=== PATIENT | female | born 1990 | race Caucasian/White ===

== ENCOUNTER 2016-11-30 15:53 | Inpatient (IN) | payer MEDICAID ==
[~2016-11-30] VITALS: Ht 160 cm; Wt 78.5 kg
[~2016-11-30 15:53] MED LIST: ACET325T33 PO; CALC600T5 PO; FOL8 PO; PRENAT PO
[2016-11-30 17:05] LABS: ADD SCAN DIFF NO
[2016-11-30 17:08] LABS: BASOPHILS % 0.2 % (0.0-2.0); EOSINOPHILS # 0.1 10^3/ul (0.0-0.5); EOSINOPHILS % 1.6 % (0.0-7.0); HEMATOCRIT 39.2 % (37.0-47.0); HEMOGLOBIN 13.7 g/dl (12.0-16.0); LYMPHOCYTES # 2.5 10^3/ul (0.8-2.9); LYMPHOCYTES % 29.4 % (15.0-51.0); MEAN CORPUSCULAR HEMOGLOBIN 31.2 pg (29.0-33.0); MEAN CORPUSCULAR HGB CONC 34.9 g/dl (32.0-37.0); MEAN CORPUSCULAR VOLUME 89.3 fl (82.0-101.0); MEAN PLATELET VOLUME 10.1 fl (7.4-10.4); MONOCYTE # 0.6 10^3/ul (0.3-0.9); MONOCYTES % 6.8 % (0.0-11.0); NEUTROPHIL # 5.2 10^3/ul (1.6-7.5); NEUTROPHILS % 61.6 % (39.0-77.0); PLATELET COUNT 281 10^3/UL (140-415); RED BLOOD COUNT 4.39 10^6/ul (4.20-5.40); RED CELL DISTRIBUTION WIDTH 12.2 % (11.5-14.5); WHITE BLOOD COUNT 8.4 10^3/ul (4.8-10.8)
[2016-11-30 17:24] LABS: INR 0.91; PROTIME 12.2 Sec (12.2-14.2)
[2016-11-30 17:25] LABS: PARTIAL THROMBOPLASTIN TIME 29.2 Sec (25.0-35.0)
[2016-11-30 17:36] LABS: ALANINE AMINOTRANSFERASE 62 IU/L (13-69); ALBUMIN/GLOBULIN RATIO 1.56; ALKALINE PHOSPHATASE 75 IU/L (42-121); ANION GAP 12 (8-16); ASPARTATE AMINO TRANSFERASE 35 IU/L (15-46); BILIRUBIN,INDIRECT 0.3 mg/dl (0-1.1); BILIRUBIN,TOTAL 0.3 mg/dl (0.2-1.3); BLOOD UREA NITROGEN 8 mg/dl (7-20); CALCIUM 9.6 mg/dl (8.4-10.2); CARBON DIOXIDE 27 mmol/L (21-31); CHLORIDE 102 mmol/L (97-110); CREATININE 0.64 mg/dl (0.44-1.00); GLUCOSE 91 mg/dl (70-220); POTASSIUM 3.7 mmol/L (3.5-5.1); SODIUM 137 mmol/L (135-144); TOTAL PROTEIN 8.2 g/dl (6.1-8.1)
[2016-11-30 17:42] LABS: C-REACTIVE PROTEIN < 0.5 mg/dl (0.0-0.9)
--- NOTE | 2016-11-30 18:38 | RADRPT ---
PROCEDURE: MR Brain without contrast. CLINICAL INDICATION: Cerebellar sinus. Evaluate cerebellum. TECHNIQUE: Multiplanar multi echo imaging is performed to the brain in the coronal sagittal and ax ial planes. Diffusion weighted axial images, axial ADC maps, coronal T1-weighted, axial T2 fast-spi n echo, axial FLAIR and T1-weighted axial images are obtained to the brain. Additional axial GRE im ages are reviewed. Coronal T2-weighted images are performed. COMPARISON: No. 3. Attempted FINDINGS: The fourth ventricle, third and lateral ventricles are normal in size and configuration. Diffusion weighted imaging is revealed no areas acute ischemic change. ADC maps of the brain are no rmal. The fourth, third and lateral ventricles are normal in size and configuration. The brain par enchyma is normal. The cerebellum is unremarkable. There is no evidence of tonsillar herniation. The globes and extraocular muscles are normal. Axial T2 FLAIR images demonstrate no evidence of acu te intracranial hemorrhage. Fast and echo T2-weighted axial images show no evidence of vasogenic ed francisco. The pituitary gland is normal in size. There is no evidence of tonsillar herniation. The cer vical portion of the spinal cord is unremarkable where visualized. No intracranial mass or vascular malformation is identified.. IMPRESSION: 1. Normal MRI the brain without contrast. 2. The cerebellum is normal. RPTAT:AAJJ Physician Godwin Date Time Electronically viewed and signed by Physician Godwin on 11/30/2016 18:38 LAILA/
[2016-11-30] MEDS ORDERED: SOD CHLORIDE 0.9% 1,000 ML IV SCH (19:30)
[2016-11-30] MEDS ORDERED: ONDANSETRON 4 MG INJ IV PRN (19:30)
--- NOTE | 2016-11-30 19:32 | EN ---
Date/Time of Note Date/Time of Note DATE: 11/30/16 TIME: 19:31 ER Progress Note I was notified about this patient from our fast track area who needed admission for cerebellar ataxia. MRI is normal however this patient is unable to ambulate. Ataxia could be post viral however given the fact the patient is unable to ambulate the patient will be admitted at this time. I have spoken to Dr. Day who agrees to accept the patient at this time for admission and neurology consult on the [facility] floor. CHAD MERIDA DO Nov 30, 2016 19:32
--- NOTE | 2016-11-30 19:46 | ERA ---
ER Documentation Chief Complaint Date/Time DATE: 11/30/16 TIME: 19:41 Chief Complaint headache and dizziness today, had an episode last week HPI This 25-year-old female presents with headache and dizziness starting earlier today. The headache is dull and occipital. She has a sensation of being on balance and spinning type dizziness. It is worse when he she turns her head although bilaterally. She did have a repeat episode of similar symptoms last week that resolved. Patient denies any recent illnesses or fevers, chest pain or shortness of breath, weakness. She did have URI symptoms although was 3-4 weeks ago. Patient denies any history of trauma. ROS All systems reviewed and are negative except as per history of present illness. Medications Home Meds Active Scripts Acetaminophen* (Tylenol*) 325 Mg Tablet, 2 TAB PO Q6 Y for PAIN AND OR ELEVATED TEMP, #30 TAB Prov:MATEO PRABHAKAR PA-C 11/01/15 Reported Medications Calcium Carbonate (CALCIUM) 600 Mg Tablet, 600 MG PO DAILY, TAB 10/31/15 Folic Acid* (Folic Acid*) 0.8 Mg Tablet, 0.8 MG PO DAILY, TAB 10/31/15 Multivit/Min/Fol Ac/Iron/Pren* ( S*) 1 Tab Tab, 1 TAB PO DAILY, TAB 10/31/15 Allergies Allergies: Coded Allergies: No Known Allergy (Unverified , 10/31/15) PMhx/Soc Medical and Surgical Hx: pt denies Medical Hx, pt denies Surgical Hx History of Surgery: No Hx Alcohol Use: No Hx Substance Use: No Hx Tobacco Use: No Smoking Status: Never smoker Physical Exam Vitals Vital Signs Date Time Temp Pulse Resp B/P Pulse Ox O2 Delivery O2 Flow Rate FiO2 11/30/16 15:59 99.4 87 18 148/84 100 Physical Exam Const: [] Alert, in a wheelchair due to dizziness. Head: Atraumatic Eyes: Normal Conjunctiva. Minimal possibly horizontal nystagmus. Eyes are PERRLA and extraocular movements intact ENT: Normal External Ears, Nose and Mouth. Neck: Full range of motion..~ No meningismus. Resp: Clear to auscultation bilaterally Cardio: Regular rate and rhythm, no murmurs Abd: Soft, non tender, non distended. Normal bowel sounds Skin: No petechiae or rashes Back: No midline or flank tenderness Ext: No cyanosis, or edema Neur: Awake and alert. Patient has an ataxic gait. Patient has positive Romberg has difficulty with finger to nose testing. Patient is unable to stand or ambulate without assistance. Psych: Normal Mood and Affect Result Diagram: 11/30/16 1653 11/30/16 1653 Results 24 hrs Laboratory Tests Test 11/30/16 16:53 White Blood Count 8.410^3/ul Red Blood Count 4.3910^6/ul Hemoglobin 13.7g/dl Hematocrit 39.2% Mean Corpuscular Volume 89.3fl Mean Corpuscular Hemoglobin 31.2pg Mean Corpuscular Hemoglobin Concent 34.9g/dl Red Cell Distribution Width 12.2% Platelet Count 68971^3/UL Mean Platelet Volume 10.1fl Neutrophils % 61.6% Lymphocytes % 29.4% Monocytes % 6.8% Eosinophils % 1.6% Basophils % 0.2% Nucleated Red Blood Cells % 0.0/100WBC Neutrophils # 5.210^3/ul Lymphocytes # 2.510^3/ul Monocytes # 0.610^3/ul Eosinophils # 0.110^3/ul Basophils # 0.010^3/ul Nucleated Red Blood Cells # 0.010^3/ul Erythrocyte Sedimentation Rate 5mm/Hr Prothrombin Time 12.2Sec Prothrombin Time Ratio 1.0 INR International Normalized Ratio 0.91 Activated Partial Thromboplast Time 29.2Sec Sodium Level 137mmol/L Potassium Level 3.7mmol/L Chloride Level 102mmol/L Carbon Dioxide Level 27mmol/L Anion Gap 12 Blood Urea Nitrogen 8mg/dl Creatinine 0.64mg/dl Glucose Level 91mg/dl Calcium Level 9.6mg/dl Total Bilirubin 0.3mg/dl Direct Bilirubin 0.00mg/dl Indirect Bilirubin 0.3mg/dl Aspartate Amino Transf (AST/SGOT) 35IU/L Alanine Aminotransferase (ALT/SGPT) 62IU/L Alkaline Phosphatase 75IU/L C-Reactive Protein < 0.5mg/dl Total Protein 8.2g/dl Albumin 5.0g/dl Globulin 3.20g/dl Albumin/Globulin Ratio 1.56 Current Medications Medications (Trade) Dose Ordered Sig/Raghu Route PRN Reason Start Time Stop Time Status Last Admin Dose Admin Sodium Chloride (NS) 1,000 ml @ 80 mls/hr [id number] IV 11/30/16 19:30 12/01/16 07:59 Ondansetron HCl (Zofran Inj) 4 mg BRIDGE ORDER PRN IV NAUSEA AND/OR VOMITING 11/30/16 19:30 12/01/16 19:29 Acetaminophen (Tylenol Tab) 650 mg ER BRIDGE PRN PO MILD PAIN/FEVER 11/30/16 19:30 12/01/16 19:29 Procedures/MDM Patient has signs and symptoms of cerebellar ataxia. IV was obtained. CBC, CMP , ESR and CRP are normal. Per radiology recommendation MRI of the brain and cerebellum is normal. Serial exam shows no improvement in patient's condition has difficulty ambulating or standing without assistance. Patient presents with cerebellar ataxia without signs or symptoms to suggest radiographic evidence of ischemia, infection, hemorrhage . Patient will be admitted for further evaluation and treatment and presumed neurologic evaluation. Patient was otherwise stable throughout the ED course. Patient shows no signs or symptoms to suggest acute coronary syndrome, pulmonary embolus, acute abdomen, sepsis. Urine drug screen pending. Departure Diagnosis: Primary Impression: Cerebellar ataxia Condition: Stable PERLITA GOODRICH MD Nov 30, 2016 19:46
[2016-11-30 21:10] VITALS: PULSE 73; TEMP 98.4
[2016-11-30] MEDS: ACETAMINOPHEN 325 MG TAB PO PRN (21:20)
[2016-11-30 22:44] VITALS: Ht 160 cm; Wt 78.5 kg
[2016-11-30 23:22] VITALS: BP 131/79; RESP 16
--- NOTE | 2016-11-30 23:42 | HP ---
Date/Time of Note Date/Time of Note DATE: 11/30/16 TIME: 23:41 Assessment/Plan VTE Prophylaxis VTE Prophylaxis Intervention: SCD's Assessment/Plan Chief Complaint/Hosp Course This is a 25 year old female being admitted to the med surg floor for: #1 Disequilibrium: Neurologic disorder/BPPV versus possible medical etiology: MRI brain was negative. Will check MRI of the spine secondary to her reported weakness of her legs and back pain. Initial labs within normal values. Will also check tsh, a1c. Consult neurology. Will give trial of meclizine. #2 Ambulatory dysfunction: this could be secondary to #1 however with the patient reporting that she an epidural injection in the past and has been feeling weak since then with palpable tenderness of the c-spine and lumbar spine , I will further evaluate with a MRI of the spine. #3dvt, gi prophylaxis: scds, protonix. Further treatment strategy as per the clinical course Problems: HPI/ROS Admit Date/Time Admit Date/Time Nov 30, 2016 at 19:31 Hx of Present Illness CC; headache, dizziness This 25-year-old female presents with headache and dizziness starting earlier today. The headache is dull and occipital. She has a sensation of being on balance and spinning type dizziness. It is worse when he she turns her head although bilaterally. She did have a repeat episode of similar symptoms last week that resolved. Patient denies any recent illnesses or fevers, chest pain or shortness of breath, weakness. She did have URI symptoms although was 3-4 weeks ago. Patient denies any history of trauma. She does also state that she has been experiencing leg weakness since getting an epidural approx. 9 months ago when delivering her child. allergies: nkda Meds: none ROS Const: As per HPI Eyes : No pain discharge or redness or change in visual acuity ENT: No pain, sore throat, congestion, congestion, dysphagia or discharge Respiratory: No shortness of breath, cough, sputum, wheezing, or pleuritic pain Cardiovascular: No chest pain, palpitation, PND, or edema GI : no change in appetite, abdominal pain, nausea, vomiting, diarrhea, constipation, or change in the color his stool Genitourinary: No dysuria, hematuria, flank pain , discharge or CVA tenderness Musculoskeletal: As per HPI Skin: No rash, bruising or hives Neuro: As per HPI Endocrine: No polyuria, polydipsia, temperature intolerance Psych: No hallucination, depression, anxiety or suicidal ideation PMH/Family/Social Past Medical History empyema as a child Past Surgical History x 1, chest tube as a child for empyema Family History Significant Family History: no pertinent family hx Social History Alcohol Use: none Smoking Status: Never smoker Drug Use: none Exam/Review of Systems Vital Signs Vitals Vital Signs Date Time Temp Pulse Resp B/P Pulse Ox O2 Delivery O2 Flow Rate FiO2 11/30/16 23:22 98.5 71 16 131/79 98 11/30/16 21:10 Room Air Exam Exam General: Patient is well-developed well-nourished The patient is alert oriented -3 lying comfortably in bed. HEENT: Atraumatic, normocephalic. The pupils are equal, round and reactive. Extraocular motor are intact Neck: Supple with full range of motion. No rigidity or meningismus Chest: Nontender Lungs: Clear to auscultation bilaterally no crackles rales or wheezing Heart: Normal S1-S2, Regular rhythm and rate. No murmur, S3, or S4 Abdomen: Soft , nontender, nondistended , bowel sounds are present. No guarding no rebound tenderness , No masses or organomegaly. No costovertebral temporal angle mass Extremities: Normal to inspection, no edema no cyanosis Neurologic: Normal mental status, normal speech normal, cranial nerves II through XII intact, patient deferred ambulatory exam at the current time however based on ED documentation patient was having ataxic gait and having difficulty ambulating. Musculoskeletal: Tenderness to palpation along the C-spine, tenderness to palpation along the lumbar spine. Additional Comments PROCEDURE: MR Brain without contrast. CLINICAL INDICATION: Cerebellar sinus. Evaluate cerebellum. TECHNIQUE: Multiplanar multi echo imaging is performed to the brain in the coronal sagittal and axial planes. Diffusion weighted axial images, axial ADC maps, coronal T1-weighted, axial T2 fast-spin echo, axial FLAIR and T1-weighted axial images are obtained to the brain. Additional axial GRE images are reviewed. Coronal T2-weighted images are performed. COMPARISON: No. 3. Attempted FINDINGS: The fourth ventricle, third and lateral ventricles are normal in size and configuration. Diffusion weighted imaging is revealed no areas acute ischemic change. ADC maps of the brain are normal. The fourth, third and lateral ventricles are normal in size and configuration. The brain parenchyma is normal. The cerebellum is unremarkable. There is no evidence of tonsillar herniation. The globes and extraocular muscles are normal. Axial T2 FLAIR images demonstrate no evidence of acute intracranial hemorrhage. Fast and echo T2- weighted axial images show no evidence of vasogenic edema. The pituitary gland is normal in size. There is no evidence of tonsillar herniation. The cervical portion of the spinal cord is unremarkable where visualized. No intracranial mass or vascular malformation is identified.. IMPRESSION: 1. Normal MRI the brain without contrast. 2. The cerebellum is normal. RPTAT:AAJJ Physician Godwin Date Time Electronically viewed and signed by Dylan Ovalle Physician on 11/30/2016 18:38 Labs Result Diagram: 11/30/16 1653 11/30/16 1653 Medications Medications Current Medications Sodium Chloride (NS) 1,000 ml @ 80 mls/hr [id number] IV ; Start 11/30/16 at 19:30 ; Stop 12/01/16 at 07:59 LAVONNE SALCEDO Nov 30, 2016 23:41
[2016-12-01] MEDS ORDERED: BISACODYL (EC) 5 MG TAB PO PRN
[2016-12-01] MEDS ORDERED: NACL 0.9% 3 ML SYG IV SCH
[2016-12-01] MEDS ORDERED: ONDANSETRON 4 MG INJ IV PRN
[2016-12-01] MEDS ORDERED: DOCUSATE SODIUM 100 MG CAP PO PRN
[2016-12-01 03:02] LABS: BARBITURATES Negative (NEGATIVE); BENZODIAZEPINES Negative (NEGATIVE); CANNABINOIDS Negative (NEGATIVE); COCAINE Negative (NEGATIVE); OPIATES Negative (NEGATIVE)
[2016-12-01] MEDS ORDERED: PANTOPRAZOLE 40 MG INJ IV SCH (06:00)
[2016-12-01 06:13] LABS: ADD SCAN DIFF NO
[2016-12-01 06:19] LABS: BASOPHILS % 0.3 % (0.0-2.0); EOSINOPHILS # 0.2 10^3/ul (0.0-0.5); EOSINOPHILS % 2.8 % (0.0-7.0); HEMATOCRIT 41.4 % (37.0-47.0); HEMOGLOBIN 14.2 g/dl (12.0-16.0); LYMPHOCYTES # 2.1 10^3/ul (0.8-2.9); LYMPHOCYTES % 28.9 % (15.0-51.0); MEAN CORPUSCULAR HEMOGLOBIN 30.9 pg (29.0-33.0); MEAN CORPUSCULAR HGB CONC 34.3 g/dl (32.0-37.0); MEAN PLATELET VOLUME 10.2 fl (7.4-10.4); MONOCYTE # 0.5 10^3/ul (0.3-0.9); NEUTROPHIL # 4.4 10^3/ul (1.6-7.5); NEUTROPHILS % 60.7 % (39.0-77.0); PLATELET COUNT 279 10^3/UL (140-415); RED CELL DISTRIBUTION WIDTH 12.2 % (11.5-14.5); WHITE BLOOD COUNT 7.2 10^3/ul (4.8-10.8)
[2016-12-01 06:43] LABS: ALBUMIN 4.6 g/dl (3.3-4.9); ALBUMIN/GLOBULIN RATIO 1.76; BILIRUBIN,INDIRECT 0.4 mg/dl (0-1.1); BILIRUBIN,TOTAL 0.4 mg/dl (0.2-1.3); CHOL/HDL RATIO 5.1 RATIO; CREATININE 0.63 mg/dl (0.44-1.00); MAGNESIUM 1.8 mg/dl (1.7-2.5); POTASSIUM 3.7 mmol/L (3.5-5.1); TOTAL PROTEIN 7.2 g/dl (6.1-8.1)
[2016-12-01 07:35] VITALS: BP 117/70; RESP 20
[2016-12-01 07:46] LABS: THYROID STIMULATING HORMONE 3.92 MIU/L (0.465-4.680)
[2016-12-01] MEDS: ACETAMINOPHEN 325 MG TAB PO PRN ×2 (09:00→18:12)
--- NOTE | 2016-12-01 09:18 | PN ---
Date/Time of Note Date/Time of Note DATE: 12/01/16 TIME: 09:16 Assessment/Plan VTE Prophylaxis VTE Prophylaxis Intervention: SCD's Lines/Catheters IV C[facility]ter Type (from [facility] Saline Lock Urinary Cath still in place: No Assessment/Plan Assessment/Plan 25 yo F who came in with dizziness and ataxia with a hx of intermittent back pain and LE pain and weakness which she attributes to epidoural during delivery 9 months ago managed as follows 1. Dizziness and headaches : MRI without contrast WNL, Will order with contrast as well / Neurology consult / Meclizine 2. Chronic low back pain with extremity weakness : * Upon further questioning, patient's weakness might be associated more with pain and is located mainly in bilateral knees, ?Autoimmune 3. Dyslipidemia PLAN: MRI scheduled for , await neurology review and MRI findings. Continue supportive care Subjective 24 Hr Interval Summary Free Text/Dictation * still having dizziness, even when she lies down. Exam/Review of Systems Vital Signs Vitals Vital Signs Date Time Temp Pulse Resp B/P Pulse Ox O2 Delivery O2 Flow Rate FiO2 12/01/16 07:35 98.0 76 20 117/70 98 12/01/16 00:51 Nasal Cannula Intake and Output 11/30/16 11/30/16 12/01/16 15:00 23:00 07:00 Intake Total 580 ml Output Total 200 ml Balance 380 ml Exam Constitutional: alert, oriented, anxious Head: atraumatic, normocephalic Neck: non-tender, supple Respiratory: clear to auscultation Cardiovascular: regular rate and rhythm Gastrointestinal: S/ NT / ND / +BS Extremities: no edema, good radial pulses Neuro: A&O x4, no focal deficits Results Result Diagram: 12/01/16 0528 12/01/16 0528 Results 24 hrs Laboratory Tests Test 11/30/16 16:53 12/01/16 00:30 12/01/16 05:28 White Blood Count 8.4 # 7.2 Red Blood Count 4.39 4.60 Hemoglobin 13.7 14.2 Hematocrit 39.2 41.4 Mean Corpuscular Volume 89.3 90.0 Mean Corpuscular Hemoglobin 31.2 30.9 Mean Corpuscular Hemoglobin Concent 34.9 34.3 Red Cell Distribution Width 12.2 12.2 Platelet Count 281 279 Mean Platelet Volume 10.1 10.2 Neutrophils % 61.6 60.7 Lymphocytes % 29.4 28.9 Monocytes % 6.8 7.0 Eosinophils % 1.6 2.8 Basophils % 0.2 0.3 Nucleated Red Blood Cells % 0.0 0.0 Neutrophils # 5.2 4.4 Lymphocytes # 2.5 2.1 Monocytes # 0.6 0.5 Eosinophils # 0.1 0.2 Basophils # 0.0 0.0 Nucleated Red Blood Cells # 0.0 0.0 Erythrocyte Sedimentation Rate 5 Prothrombin Time 12.2 Prothrombin Time Ratio 1.0 INR International Normalized Ratio 0.91 Activated Partial Thromboplast Time 29.2 Sodium Level 137 138 Potassium Level 3.7 3.7 Chloride Level 102 103 Carbon Dioxide Level 27 27 Anion Gap 12 12 Blood Urea Nitrogen 8 10 Creatinine 0.64 0.63 Glucose Level 91 95 Calcium Level 9.6 9.0 Total Bilirubin 0.3 0.4 Direct Bilirubin 0.00 0.00 Indirect Bilirubin 0.3 0.4 Aspartate Amino Transf (AST/SGOT) 35 33 Alanine Aminotransferase (ALT/SGPT) 62 60 Alkaline Phosphatase 75 67 C-Reactive Protein < 0.5 Total Protein 8.2 H 7.2 # Albumin 5.0 H 4.6 Globulin 3.20 2.60 Albumin/Globulin Ratio 1.56 1.76 Urine Opiates Screen Negative Urine Barbiturates Negative Urine Amphetamines Screen Negative Urine Benzodiazepines Screen Negative Urine Cocaine Screen Negative Urine Cannabinoids Negative Hemoglobin A1c 5.5 Magnesium Level 1.8 Triglycerides Level 207 H Cholesterol Level 144 LDL Cholesterol, Calculated 75 HDL Cholesterol 28 L Cholesterol/HDL Ratio 5.1 Thyroid Stimulating Hormone (TSH) 3.920 Medications Medications Current Medications Ondansetron HCl (Zofran Inj) 4 mg Q6H PRN IV NAUSEA AND/OR VOMITING; Start 05/08 at 00:00 Acetaminophen (Tylenol Tab) 650 mg Q6H PRN PO PAIN LEVEL 1-3 OR FEVER; Start at 00:00 Docusate Sodium (Colace) 100 mg Q12H PRN PO CONSTIPATION; Start 12/01/16 at 00: 00 Bisacodyl (Dulcolax) 5 mg DAILY PRN PO CONSTIPATION; Start 12/01/16 at 00:00 Pantoprazole (Protonix Iv) 40 mg DAILY@06 IV Last administered on 12/01/16t 05: 33; Admin Dose 40 MG; Start 12/01/16 at 06:00 BRIAN KUMAR Dec 01, 2016 09:18
--- NOTE | 2016-12-01 14:27 | CONS ---
Date/Time of Note Date/Time of Note DATE: 12/01/16 TIME: 14:21 Assessment/Plan Assessment/Plan Chief Complaint/Hosp Course 25 yo female with no significant PMHx p/w intermittent dizziness and vertigo, neck and lower back pain. Neurologic exam is non-focal. MRI Brain is normal. Recommendations: MRI Brain post contrast imaging, MRI Cervical Spine +/- contrast to evaluate for MS and MRI Lumbar Spine ordered for back pain if imaging all normal patient advised she may follow up with neurology as outpatient IV hydration, meclizine prn vertigo Problems: Consultation Date/Type/Reason Admit Date/Time Nov 30, 2016 at 19:31 Date of Consultation: Dec 01, 2016 Type of Consultation: Neurology Reason for Consultation ataxia eval. Referring Provider: BRIAN KUMAR of Present Illness 25 year old female with history of chronic back pain over 9 months p/w sensation of dizziness and imbalance upon ambulation for the past week. She denies any visual symptoms, she describes some weakness in her left arm tingling sensation yesterday that is now resolved and tenderness of her cervical spine. She has never received further imaging for work up, complains of lumbar pain after epidural injection 9 months prior. MRI Brain w/o contrast done is normal. She denies any recent illness. Social History Alcohol Use: none Smoking Status: Never smoker Drug Use: none Exam/Review of Systems Vital Signs Vitals Vital Signs Date Time Temp Pulse Resp B/P Pulse Ox O2 Delivery O2 Flow Rate FiO2 12/01/16 07:35 98.0 76 20 117/70 98 12/01/16 00:51 Nasal Cannula Intake and Output 11/30/16 11/30/16 12/01/16 15:00 23:00 07:00 Intake Total 580 ml Output Total 200 ml Balance 380 ml Exam Constitutional: alert, oriented, well developed Neurological: [employer]ING [employer] II-XII intact, DTR's symmetric, nl mental status, nl speech, nl strength Results Result Diagram: 12/01/1628 12/01/16527 Results 24 hrs Laboratory Tests Test 11/30/16 16:53 12/01/16 00:30 12/01/16 05:28 White Blood Count 8.4 # 7.2 Red Blood Count 4.39 4.60 Hemoglobin 13.7 14.2 Hematocrit 39.2 41.4 Mean Corpuscular Volume 89.3 90.0 Mean Corpuscular Hemoglobin 31.2 30.9 Mean Corpuscular Hemoglobin Concent 34.9 34.3 Red Cell Distribution Width 12.2 12.2 Platelet Count 281 279 Mean Platelet Volume 10.1 10.2 Neutrophils % 61.6 60.7 Lymphocytes % 29.4 28.9 Monocytes % 6.8 7.0 Eosinophils % 1.6 2.8 Basophils % 0.2 0.3 Nucleated Red Blood Cells % 0.0 0.0 Neutrophils # 5.2 4.4 Lymphocytes # 2.5 2.1 Monocytes # 0.6 0.5 Eosinophils # 0.1 0.2 Basophils # 0.0 0.0 Nucleated Red Blood Cells # 0.0 0.0 Erythrocyte Sedimentation Rate 5 Prothrombin Time 12.2 Prothrombin Time Ratio 1.0 INR International Normalized Ratio 0.91 Activated Partial Thromboplast Time 29.2 Sodium Level 137 138 Potassium Level 3.7 3.7 Chloride Level 102 103 Carbon Dioxide Level 27 27 Anion Gap 12 12 Blood Urea Nitrogen 8 10 Creatinine 0.64 0.63 Glucose Level 91 95 Calcium Level 9.6 9.0 Total Bilirubin 0.3 0.4 Direct Bilirubin 0.00 0.00 Indirect Bilirubin 0.3 0.4 Aspartate Amino Transf (AST/SGOT) 35 33 Alanine Aminotransferase (ALT/SGPT) 62 60 Alkaline Phosphatase 75 67 C-Reactive Protein < 0.5 Total Protein 8.2 H 7.2 # Albumin 5.0 H 4.6 Globulin 3.20 2.60 Albumin/Globulin Ratio 1.56 1.76 Urine Opiates Screen Negative Urine Barbiturates Negative Urine Amphetamines Screen Negative Urine Benzodiazepines Screen Negative Urine Cocaine Screen Negative Urine Cannabinoids Negative Hemoglobin A1c 5.5 Magnesium Level 1.8 Triglycerides Level 207 H Cholesterol Level 144 LDL Cholesterol, Calculated 75 HDL Cholesterol 28 L Cholesterol/HDL Ratio 5.1 Thyroid Stimulating Hormone (TSH) 3.920 Medications Medications Current Medications Ondansetron HCl (Zofran Inj) 4 mg Q6H PRN IV NAUSEA AND/OR VOMITING; Start 05/08 at 00:00 Acetaminophen (Tylenol Tab) 650 mg Q6H PRN PO PAIN LEVEL 1-3 OR FEVER; Start at 00:00 Bisacodyl (Dulcolax) 5 mg DAILY PRN PO CONSTIPATION; Start 12/01/16 at 00:00 Docusate Sodium (Colace) 100 mg Q12H PO ; Start 12/01/16 at 12:00 Atorvastatin Calcium (Lipitor) 10 mg HS PO ; Start 12/01/16 at 21:00 Pantoprazole (Protonix Tab) 40 mg DAILY@06 PO ; Start 12/02/16 at 06:00 Fish Oil (Fish Oil) 1,000 mg BID PO ; Start 12/01/16 at 14:00 PUMA HUGHES MD Dec 01, 2016 14:26
--- NOTE | 2016-12-01 15:05 | RADRPT ---
PROCEDURE: MRI lumbar spine without contrast CLINICAL INDICATION: Back pain TECHNIQUE: An high-resolution MRI of the lumbar spine was performed utilizing the following sequen dilip: Sagittal and axial T1 weighted, sagittal and axial T2 weighted, and sagittal fat suppressed T2. COMPARISON: None FINDINGS: No acute vertebral compression fracture. No evidence of a diffuse marrow replacing process. The conus medullaris terminates at L1. T12 - L1: The disk is preserved in height. There is no significant disk protrusion, spinal canal or foraminal stenosis. L1 - L2: The disk is preserved in height. There is no significant disk protrusion, spinal canal or foraminal stenosis. L2 - L3: The disk is preserved in height. There is no significant disk protrusion, spinal canal or foraminal stenosis. L3 - L4: The disk is preserved in height. There is no significant disk protrusion, spinal canal or foraminal stenosis. L4 - L5: The disk is preserved in height. There is no significant disk protrusion, spinal canal o r foraminal stenosis. L5 - S1: Disk dessication with left central to left foraminal 2 mm disk protrusion and disk annula r fissure. There is mild narrowing of the left lateral recess without displacement of the traversin g left S1 nerve. No spinal canal stenosis. Mild left foraminal narrowing. Paraspinal soft tissues are unremarkable. IMPRESSION: L5 - S1: Mild discogenic disease with a left central to left foraminal 2 mm disk protrusion and di sk annular fissure. Mild left foraminal narrowing. Otherwise, unremarkable noncontrast lumbar spin e MRI. RPTAT: AA .Tin Rojas MD, Date Time Electronically viewed and signed by .Tin Rojas MD, MD on 12/01/2016 15:05 .T/
--- NOTE | 2016-12-01 15:43 | RADRPT ---
PROCEDURE: MRI Brain without and with contrast. CLINICAL INDICATION: Ataxia, headaches and dizziness TECHNIQUE: Multiplanar MRI of the brain without and with contrast was performed on a 3.0 T scanner with the following sequences obtained: T1-weighted, T2-weighted FLAIR, postcontrast T1-weighted. 1 0 cc Magnevist intravenous contrast was administered. COMPARISON: MRI brain 11/30/2016 FINDINGS: No intracranial mass lesion is identified. There is a small enhancing developmental venous anomaly in the parasagittal posterior left frontal region. No abnormal parenchymal, leptomeningeal or dural enhancement is identified. IMPRESSION: 1. No intracranial mass or abnormal enhancement identified. 2. Small left frontal developmental venous anomaly. RPTAT: VV .Dez Marte MD, MD Date Time Electronically viewed and signed by .Dez Marte MD, on 12/01/2016 15:43 .O/
--- NOTE | 2016-12-01 15:48 | RADRPT ---
PROCEDURE: MRI cervical spine without and with contrast CLINICAL INDICATION: Ataxia. Neck pain. TECHNIQUE: Multiplanar MRI of the cervical spine without and with contrast was performed on a 3.0 T scanner including the following sequences: T1-weighted, T2-weighted, postcontrast T1-weighted. 10 cc Magnevist intravenous contrast was administered. COMPARISON: None available. FINDINGS: There is slight reversal of the lordosis of the cervical spine. Alignment is otherwise intact. The vertebral bodies are maintained in height. Marrow signal intensity is unremarkable. Intervertebra l discs are maintained in height. The cervical cord is within normal limits for signal intensity an d caliber at all levels. No abnormal medullary or leptomeningeal enhancement is identified. . C2-3: No disk bulge or herniation is identified. There is no central canal stenosis or foraminal na rrowing. C3-4: No disk bulge or herniation is identified. There is no central canal stenosis or foraminal na rrowing. C4-5: No disk bulge or herniation is identified. There is no central canal stenosis or foraminal na rrowing. C5-6: No disk bulge or herniation is identified. There is no central canal stenosis or foraminal na rrowing. C6-7: No disk bulge or herniation is identified. There is no central canal stenosis or foraminal na rrowing. C7-T1: No disk bulge or herniation is identified. There is no central canal stenosis or foraminal n arrowing. IMPRESSION: 1. Slight reversal of the cervical lordosis. 2. No central canal stenosis or foraminal narrowing. 3. Cervical cord within normal limits. RPTAT: VV .Dez Marte MD, MD Date Time Electronically viewed and signed by .Dez Marte MD, MD on 12/01/2016 15:48 .O/
[2016-12-01] MEDS: DOCUSATE SODIUM 100 MG CAP PO SCH (18:09)
[2016-12-01] MEDS: FISH OIL 1,000 MG CAP PO SCH ×2 (18:09→21:18)
[2016-12-01 20:28] VITALS: BP 120/70; RESP 16
[2016-12-01] MEDS ORDERED: ATORVASTATIN 10 MG TAB PO SCH (21:00)
[2016-12-02] MEDS: DOCUSATE SODIUM 100 MG CAP PO SCH ×2 (00:46→12:42)
[2016-12-02 03:40] VITALS: BP 112/71; RESP 18
[2016-12-02] MEDS ORDERED: PANTOPRAZOLE (EC) 40 MG TAB PO SCH (06:00)
[2016-12-02] MEDS: ACETAMINOPHEN 325 MG TAB PO PRN (06:01)
[2016-12-02 06:27] LABS: T3 UPTAKE 30.5 % (23.5-40.5)
[2016-12-02 06:40] LABS: THYROID STIMULATING HORMONE 2.28 MIU/L (0.465-4.680)
[2016-12-02 08:01] VITALS: BP 113/68; RESP 18
[2016-12-02 08:06] VITALS: BP 135/63; RESP 18
[2016-12-02] MEDS: FISH OIL 1,000 MG CAP PO SCH (08:21)
[2016-12-02] MEDS ORDERED: MECL-77 PO (11:25)
[2016-12-02] MEDS ORDERED: ATOR10TA65 PO (11:25)
[2016-12-02] MEDS ORDERED: OMEG1CAP55 PO (11:25)
[2016-12-02] MEDS ORDERED: MECLIZINE 25 MG TAB PO SCH (12:30)
[2016-12-02 14:16] VITALS: BP 126/72; RESP 18
[2016-12-02] MEDS ORDERED: AMOX1TAB10 PO (15:56)
--- NOTE | 2016-12-02 15:56 | PDOCDIS ---
Discharge Instructions DIAGNOSIS Discharge Diagnosis Dizziness / headaches / tinnitus CONDITION Patient Condition: Stable HOME CARE INSTRUCTIONS: Diet Instructions: Low Fat /CholesterolSpecial Diet: regular ACTIVITY: Activity Restrictions: Slowly Increase Activity Rest between Activity SCHOOL/WORK RELEASE May return to School/Work on: Dec 06, 2016 May return to School/Work with: No Restrictions School/Work Release Comment: Please excuse patient from November 30 till December 06. Thanks BRIAN KUMAR Dec 02, 2016 15:56
--- NOTE | 2016-12-02 15:57 | DS ---
Date/Time of Note Date/Time of Note DATE: 12/02/16 TIME: 15:57 Discharge Summary Admission/Discharge Info Admit Date/Time Nov 30, 2016 at 19:31 Discharge Date/Time 12/02/16 . Discharge Diagnosis Dizziness / headaches / tinnitus Patient Condition: Stable Consults Neurology: Jonathan . Procedures See hospital course . Hx of Present Illness CC; headache, dizziness This 25-year-old female presents with headache and dizziness starting earlier today. The headache is dull and occipital. She has a sensation of being on balance and spinning type dizziness. It is worse when he she turns her head although bilaterally. She did have a repeat episode of similar symptoms last week that resolved. Patient denies any recent illnesses or fevers, chest pain or shortness of breath, weakness. She did have URI symptoms although was 3-4 weeks ago. Patient denies any history of trauma. She does also state that she has been experiencing leg weakness since getting an epidural approx. 9 months ago when delivering her child. allergies: nkda Meds: none Hospital Course 25-year-old female admitted November 30 for dizziness, disequilibrium, and headaches. She was admitted for evaluation and symptom control. She had brain MRI with and without contrast, cervical spine MRI, lumbar spine MRI, and she was also seen by neurology. There were no critical findings or findings I explained her symptoms on above imaging, and then neurology recommended outpatient continued follow-up if symptoms persist. She was started on meclizine which seemed to improve her symptoms. She was seen by physical therapy as well. Her workup did show some dyslipidemia, she was started on statins for those and she had complained of some ringing in the ear as well as ear pain so she was being treated for a chronic ear infection with antibiotics. She is recommended to follow-up with her primary care doctor for an ENT consult if symptoms persist after instituted therapy. She verbalized understanding. She was discharged in stable condition. . Home Meds Active Scripts Amoxicillin/Potassium Clav (Amox-Clav 875-125 mg Tablet) 875-125 mg Tab, 1 TAB PO BID, #20 TAB Prov:BRIAN KUMAR 12/02/16 Meclizine Hcl* (Meclizine Hcl*) 25 Mg Tablet, 25 MG PO TID for 30 Days, TAB Prov:BRIAN KUMAR 7/13/17 [place]-3/Dha/Epa/Fish Oil (FISH OIL EC 1,000 MG SOFTGEL) 1 Each Capsule.dr, 1000 MG PO BID for 30 Days, 2 Refills Prov:BRIAN KUMAR 12/02/16 Atorvastatin (Atorvastatin) 10 Mg Tablet, 10 MG PO HS for 30 Days, TAB 2 Refills Prov:BRIAN KUMAR 12/02/16 Acetaminophen* (Tylenol*) 325 Mg Tablet, 2 TAB PO Q6 Y for PAIN AND OR ELEVATED TEMP, #30 TAB Prov:MATEO PRABHAKAR PA-C 11/01/15 Reported Medications Folic Acid* (Folic Acid*) 0.8 Mg Tablet, 0.8 MG PO DAILY, TAB 10/31/15 Multivit/Min/Fol Ac/Iron/Pren* ( S*) 1 Tab Tab, 1 TAB PO DAILY, TAB 10/31/15 Discontinued Reported Medications Calcium Carbonate (CALCIUM) 600 Mg Tablet, 600 MG PO DAILY, TAB 10/31/15 Follow-up Plan See hospital course . Primary Care Provider Not On Staff Doctor Time spent on discharge: > 30 minutes Pending Labs Laboratory Tests Test 12/02/16 05:30 Creatine Kinase 81IU/L (23-200) Thyroid Stimulating Hormone (TSH) 2.280MIU/L (0.465-4.680) Free Thyroxine Index 2.59ug/ml (0.65-3.89) Thyroxine (T4) 8.5ug/dl (5.5-11.0) Triiodothyronine (T3) Uptake 30.5% (23.5-40.5) BRIAN KUMAR Dec 02, 2016 15:57
== END 2016-12-02 18:55 | disposition home or self-care (01) | DRG 149 ==
LOC: FTE 15:53 → MS2 19:31
PROVIDERS: ADMIT Family Medicine; ATTEND Family Medicine
DX: R42 Dizziness and giddiness (principal); Q28.3 Other malformations of cerebral vessels; R51 Headache; H93.19 Tinnitus, unspecified ear; E78.5 Hyperlipidemia, unspecified; G89.29 Other chronic pain; M51.26 Other intervertebral disc displacement, lumbar region; M51.36 Other intervertebral disc degeneration, lumbar region; M54.2 Cervicalgia
CPT/HCPCS: 36415; 70551; 70552; 72148; 72156; 80053; 80061; 80307; 82550; 83036; 83735; 84436; 84443; 84479; 85025; 85610; 85651; 85730; 86140; 97110; 97162; 97166; C9113; J7030

== ENCOUNTER 2018-07-11 06:56 | Emergency (ER) | payer OTHER ==
[~2018-07-11] VITALS: Ht 160 cm; Wt 79.1 kg
[~2018-07-11 06:56] MED LIST changes: +AMOX1TAB10 PO; +ATOR10TA65 PO; -CALC600T5 PO; +MECL-77 PO; +OMEG-157 PO
[2018-07-11 06:58] VITALS: BP 139/75; PULSE 79; RESP 18; Ht 160 cm; Wt 79.1 kg
[2018-07-11] MEDS ORDERED: KETOROLAC 60 MG INJ IM STA (07:31)
[2018-07-11] MEDS ORDERED: CYCL10TA7 PO (08:24)
[2018-07-11] MEDS ORDERED: HYDR-4011 PO (08:24)
[2018-07-11] MEDS ORDERED: NAPR-985 PO (08:24)
--- NOTE | 2018-07-11 10:32 | ERD ---
ER Documentation Chief Complaint Chief Complaint stiff neck since yesterday and left arm numbness HPI 27-year-old female presenting with a stiff neck to the left side since yesterday. She states that she has occasional arm numbness with some pain. Denies any headaches or vomiting. Denies any recent falls or traumatic injuries. Her pain is worse with movement and she feels very stiff and unable to move in certain directions. She has not taken medication today for symptoms. Denies medical problems. NKDA. Surgical history is positive drainage from her lungs as a child. Social history denies ROS All systems reviewed and are negative except as per history of present illness. Medications Home Meds Active Scripts Cyclobenzaprine Hcl* (Cyclobenzaprine Hcl*) 10 Mg Tablet, 10 MG PO TID, #15 TAB Prov:SKYLER RUBIN PA-C 07/11/18 Naproxen* (Naprosyn*) 500 Mg Tablet, 500 MG PO BID PRN for PAIN AND/OR INFLAMMATION, #30 TAB Prov:SKYLER RUBIN PA-C 07/11/18 Hydrocodone/Acetaminophen ([place] 5-325 Tablet) 1 Each Tablet, 1 TAB PO Q6H PRN for PAIN, #7 TAB Prov:SKYLER RBUIN PA-C 07/11/18 Amoxicillin/Potassium Clav (Amox-Clav 875-125 mg Tablet) 875-125 mg Tab, 1 TAB PO BID, #20 TAB Prov:BRIAN KUMAR 12/02/16 Meclizine Hcl* (Meclizine Hcl*) 25 Mg Tablet, 25 MG PO TID for 30 Days, TAB Prov:BRIAN KUMAR 12/02/16 [place]-3/Dha/Epa/Fish Oil (FISH OIL EC 1,000 MG SOFTGEL) 1 Each Capsule.dr, 1000 MG PO BID for 30 Days, 2 Refills Prov:BRIAN KUMAR 12/02/16 Atorvastatin (Atorvastatin) 10 Mg Tablet, 10 MG PO HS for 30 Days, TAB 2 Refills Prov:BRIAN KUMAR 12/02/16 Acetaminophen* (Tylenol*) 325 Mg Tablet, 2 TAB PO Q6 PRN for PAIN AND OR ELEVATED TEMP, #30 TAB Prov:MATEO PRABHAKAR PA-C 11/01/15 Reported Medications Folic Acid* (Folic Acid*) 0.8 Mg Tablet, 0.8 MG PO DAILY, TAB 10/31/15 Multivit/Min/Fol Ac/Iron/Pren* ( S*) 1 Tab Tab, 1 TAB PO DAILY, TAB 10/31/15 Allergies Allergies: Coded Allergies: No Known Allergy (Unverified , 10/31/15) PMhx/Soc History of Surgery: Yes (remove pus in the lungs) Anesthesia Reaction: No Hx Neurological Disorder: No Hx Respiratory Disorders: No Hx Cardiac Disorders: No Hx Psychiatric Problems: No Hx Miscellaneous Medical Probl: Yes (L/S pain) Hx Alcohol Use: No Hx Substance Use: No Hx Tobacco Use: No FmHx Family History: No diabetes, No coronary disease, No other Physical Exam Vitals Vital Signs Date Temp Pulse Resp B/P (MAP) Pulse Ox O2 O2 Flow FiO2 Time Delivery Rate 07/11/18 97.3 79 18 139/75 99 06:58 (96) Physical Exam GENERAL: The patient is well-appearing, well-nourished, in no acute distress HEENT: Atraumatic. Conjunctivae are pink. Pupils equal, round, and reactive to light. There is no scleral icterus. Tympanic membranes clear bilaterally. Oropharynx clear. NECK: C-spine is soft and supple. There is no meningismus. Tender to palpation of the lateral portion of the neck around the trapezius muscles. No obvious deformities. CHEST: Clear to auscultation bilaterally. There are no rales, wheezes or rhonchi. HEART: Regular rate and rhythm. No murmurs, clicks, rubs or gallops. EXTREMITIES: Equal pulses bilaterally. There is no peripheral clubbing, cyanosis or edema. No focal swelling or erythema. Full range of motion. Grossly neurovascularly intact. NEUROLOGIC: Alert and oriented. Cranial nerves II through XII intact. Motor strength in all 4 extremities with 5 out of 5 strength. Sensation grossly intact. SKIN: There is no apparent rash or petechiae. The skin is warm and dry. Results 24 hrs Laboratory Tests Test 07/11/18 08:01 POC Beta HCG, Qualitative NEGATIVE Current Medications Medications Dose Sig/Raghu Start Time Status Last (Trade) Ordered Route PRN Stop Time Admin Dose Reason Admin Ketorolac 60 mg ONCE STAT 07/11/18 DC 07/11/18 Tromethamine IM 07:31 08:09 (Toradol) 07/11/18 07:33 Procedures/MDM DIAGNOSTIC IMAGING REPORT Patient: FRIEDA PALAFOX : 1990 Age: 27 Sex: F MR #: [id number] DOS: 07/11/18 0731 Ordering MD: RUSH RUBIN PA-C Location: [facility] Room/Bed: PROCEDURE: XR Cervical Spine. CLINICAL INDICATION: Neck pain TECHNIQUE: AP, lateral, and odontoid views of the cervical spine were obtained. COMPARISON: None. FINDINGS: No fracture is identified. The vertebral bodies are maintained in height. There is preservation of the lordosis of the cervical spine. No spondylolisthesis is identified. Disc spaces are maintained in height. There are mild anterior osteophytes/calcification at C5-6. The prevertebral soft tissues are unremarkable. IMPRESSION: Straightening of the cervical lordosis, without fracture identified. Mild cervical spondylosis/degenerative enthesopathy described above. MDM: 27-year-old female presenting with stiff neck. I have low suspicion for acute fracture dislocation. Patient has muscular skeletal spasms and will be discharged with supportive medications. Patient is discharged stricter precautions and told to follow-up with primary care within 1-2 days for close evaluation. Patient is told symptoms change or worsen to return immediately to the ER. All questions answered at discharge Departure Diagnosis: Primary Impression: Neck pain Condition: Stable Patient Instructions: Neck Pain, No Trauma Referrals: [facility] YOU HAVE RECEIVED A MEDICAL SCREENING EXAM AND THE RESULTS INDICATE THAT YOU DO NOT HAVE A CONDITION THAT REQUIRES URGENT TREATMENT IN THE EMERGENCY DEPARTMENT. FURTHER EVALUATION AND TREATMENT OF YOUR CONDITION CAN WAIT UNTIL YOU ARE SEEN IN YOUR DOCTORS OFFICE WITHIN THE NEXT 1-2 DAYS. IT IS YOUR RESPONSIBILITY TO MAKE AN APPOINTMENT FOR FOLOW-UP CARE. IF YOU HAVE A PRIMARY DOCTOR --you should call your primary doctor and schedule an appointment IF YOU DO NOT HAVE A PRIMARY DOCTOR YOU CAN CALL OUR PHYSICIAN REFERRAL HOTLINE AT IF YOU CAN NOT AFFORD TO SEE A PHYSICIAN YOU CAN CHOSE FROM THE FOLLOWING [facility] [address] [facility]. [facility] [address] [facility] [address] [facility] [address] [facility] [address] [facility]. [facility] [address] [facility]. [facility]. [address] Additional Instructions: FOLLOW UP WITH YOUR PRIMARY CARE PHYSICIAN TOMORROW.Return to this facility if you are not improving as expected. SKYLER RUBIN PA-C Jul 11, 2018 10:32
== END 2018-07-11 08:34 | disposition home or self-care (01) ==
LOC: FTE 06:56
DX: M54.2 Cervicalgia (principal)
CPT/HCPCS: 72040; 81025; 96372; 99284; J1885